=== PATIENT | female | born 1940 | race Caucasian/White ===

== ENCOUNTER → 2016-09-05 | Outpatient (CLI) | payer MEDICARE, BC ==
[~2016-09-05] MED LIST: CYAN500T46 PO; DULO60CA6 PO; GABA100C14 PO; HYDR200T39 PO; LEVO75TA5 PO; RESTOP4 BOTH EYES
--- NOTE | 2016-09-05 18:00 | RADRPT ---
PROCEDURE: Left knee radiographs. CLINICAL INDICATION: Left knee pain. Postop. TECHNIQUE: Three views. Weight bearing. Frontal, lateral, and patellar view. COMPARISON: 09/07/2015. FINDINGS: There is no fracture or dislocation. The soft tissues are normal. 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 There is no lytic or blastic lesion. There is no joint effusion. IMPRESSION: 1. Satisfactory postoperative appearance of the left knee. RPTAT: QQ .Darwin Pruett MD, Date Time Electronically viewed and signed by .Darwin Pruett MD, on 09/05/2016 17:59 .R/
== END | disposition home or self-care (01) ==
LOC: HKI 13:25
PROVIDERS: ATTEND Orthopaedic Surgery
DX: Z09 Encounter for follow-up examination after completed treatment for conditions other than malignant neoplasm (principal); Z96.652 Presence of left artificial knee joint
CPT/HCPCS: 73562; G0463